=== PATIENT | male | born 1945 | race Hispanic/Latino ===

== ENCOUNTER 2017-07-15 06:18 | Day surgery (SDC) | payer MEDICARE ==
[2017-07-11 15:37] VITALS: BMI 31.9
[2017-07-15] MEDS ORDERED: Lidocaine 2% Inj (20ml) ONE ×2 (06:45→07:08)
[2017-07-15] MEDS ORDERED: Iodixanol 320 MG/ML 200 ML BOTTLE IV ONE (06:46)
[2017-07-15] MEDS ORDERED: Iodixanol 320 MG/ML 100 ML BOTTLE IV ONE (06:46)
[2017-07-15] MEDS ORDERED: Iohexol 350mgl/ml 50 ML ONE ×2 (06:46→07:09)
[2017-07-15] MEDS ORDERED: Nitroglycerin 50mg in D5W 0 MG/0 ML BOTTLE IV ONE (06:46)
[2017-07-15] MEDS ORDERED: Phenylephrine 10 mg/ml Inj ONE (06:46)
[2017-07-15 07:06] LABS: BASO # 0.03 K/mm3 (0.0-2.0); BASO % 0.1 % (0.0-3.0); EOS # 0.1 (0.0-0.7); EOS % 0.3 % (1.5-5.0); GRAN # 7.99 (1.4-6.5); HEMATOCRIT 40.1 % (42.0-52.0); LYMPH # 11.4 (1.2-3.4); LYMPH % 54.2 % (22.0-35.0); MEAN CELL VOLUME 87.4 fl (80.0-105.0); MEAN CORPUSCULAR HEMOGLOBIN 30.7 pg (25.0-35.0); MEAN CORPUSCULAR HGB CONC 35.2 g/dl (31.0-37.0); MEAN PLATELET VOLUME 10.7 fl (7.0-11.0); MONO # 1.6 (0.1-0.6); MONO % 7.4 % (1.0-6.0); RED CELL DISTRIBUTION WIDTH 13.7 % (11.5-14.5); WHITE BLOOD COUNT 21.1 10^3/ul (4.5-11.0)
[2017-07-15] MEDS ORDERED: Midazolam 2 MG/2 ML VIAL ONE ×2 (07:10→08:06)
[2017-07-15 07:16] LABS: BLOOD UREA NITROGEN 27 mg/dL (7-21); CALCIUM 9.6 mg/dL (8.4-10.5); CARBON DIOXIDE 25 mmol/L (21-33); CHLORIDE 93 mmol/L (98-107); CHOLESTEROL 110 mg/dL (130-200); GFR AFRICAN-AMERICAN > 60; GLUCOSE,RANDOM 177 mg/dL (70-110); POTASSIUM 4.6 mmol/L (3.6-5.0); SODIUM 130 mmol/L (132-148)
[2017-07-15 07:17] LABS: INR 1.2 (0.93-1.08); PARTIAL THROMBOPLASTIN TIME 26.9 Seconds (25.1-36.5)
[2017-07-15] MEDS ORDERED: Famotidine 20mg/50ml 20 MG/50 ML BAG IVPB ONE (07:22)
[2017-07-15] MEDS ORDERED: DiphenhydrAMINE 50 mg/ml Inj ONE (07:22)
[2017-07-15] MEDS ORDERED: Flumazenil 0.1 mg/ml Inj (5ml) IVP ONE ×2 (08:12→08:13)
[2017-07-15] MEDS ORDERED: Sodium Chloride 0.9% 1,000 ML IV SCH (09:00)
--- NOTE | 2017-07-15 10:15 | CARD ---
APPROVED REPORT EKG Measurement Heart [id number] MD 140P63 [id number] <Conclusion> Normal sinus rhythm Possible Inferior infarct, age undetermined No change
--- NOTE | 2017-07-15 10:26 | CARD ---
APPROVED REPORT EKG Measurement Heart [id number] UT 140P55 [id number] <Conclusion> Normal sinus rhythm Possible Inferior infarct, age undetermined No change
--- NOTE | 2017-07-15 12:17 | CARDCATH ---
PROCEDURE DATE: 07/15/2017 HISTORY: The patient is a 71-year-old male with multiple cardiac risk factors and a history of multivessel CAD who presents for PTCA and stent of the circumflex artery. The left femoral artery was cannulated with a 6-[place] sheath. There were no complications. I performed moderate sedation, which included the presence of an independent trained observer that assisted in monitoring the patient's level of consciousness and physiologic status. After administration of fentanyl and Versed, my intra service time was 15 minutes. The left femoral artery was cannulated with 6-[place] sheath. There were no complications. The findings on catheterization revealed the right coronary artery was a dominant vessel. The stents that were placed placed previously were patent with no residual stenosis. The circumflex artery revealed 90% stenosis in the midportion. The patient was started on intravenous Angiomax under fluoroscopic guide, the guiding catheter was placed in the ostium of the left main artery. An 0.014 ATW wire was used to cross the lesion. A 2.0 balloon was utilized to pre-dilate the lesion at 12 atmospheres of pressure. Repeat coronary artery revealed an improved lesion. A 2.5 x 12 mm drug-eluting stent was placed and deployed in the midportion of the circumflex artery. Repeat coronary arteriography revealed an excellent result with resolution of the critical stenoses and DWIGHT III flow. Manual compression was used to close the femoral artery site. The patient tolerated the procedure well. In summary, the procedure was successful with PTCA and stent of a critically stenosed mid circumflex artery lesion. A drug-eluting stent was utilized. Cardiac catheterization revealed patent stents in the RCA that was placed previously as well as the critical lesion in the circumflex artery, which was manipulated with a ARELIS. Given these findings, the patient will need to remain on aspirin indefinitely and Plavix for at least a year and undergo a strict cardiac risk reduction program. Moses Pressley MD
--- NOTE | 2017-07-15 12:31 | CP.PCM.HP ---
History of Present Illness - History of Present Illness History of Present Illness: Jorge Ortiz PGY1 IM H&P Note for Dr. Holden/Dr. Turner cc: s/p cath Mr. Simons is a 71 year old male with past medical history of ID, CAD s/p multiple stents, DM2, HTN, and CLL who presented s/p left heart cath and stenting of circumflex artery with Dr. Pressley. On 07/08/17, the patient had a PTCA with stent of two lesions in the proximal and mid RCA with PTCA of the PDA lesion; the patient was noted to have triple disease, which is why he returned for today's procedure. The procedure was tolerated well and the patient currently only complains of back discomfort from lying flat on the bed; denies any bleeding from the region. He denies chest pain, shortness of breath, fevers/ chill, n/v/d, cough, abdominal pain/fullness, headache, weakness or any numbness /tingling. 12-pt ROS was reviewed and is otherwise unremarkable. PMH: as above PSH: cataracts, appendectomy FMH: + Heart disease, DM2 SOCHx: Tobacco: Former smoker quit @51, 30 year pack history. ETOH: Positive ALL: Shellfish Meds:Reviewed and within MAR PMD: Dr. Turenr Cardio: Dr. Pressley Present on Admission - Present on Admission Any Indicators Present on Admission: No Review of Systems - Review of Systems All systems: reviewed and no additional remarkable complaints except (as per HPI ) Past Patient History - Past Medical History & Family History Past Medical History?: Yes Pertinent Family History: heart disease - Past Social History Smoking Status: Former Smoker Alcohol: Occasional Drugs: Denies Home Situation {Lives}: With Family - CARDIAC Hx Cardiac Disorders: Yes (CAD s/p stents) Hx Heart Attack: Yes Hx Hypertension: Yes Hx Pacemaker: No - PULMONARY Hx Respiratory Disorders: No - NEUROLOGICAL Hx Neurological Disorder: No Hx Paralysis: No - HEENT Hx Cataracts: Yes - RENAL Hx Chronic Kidney Disease: No - ENDOCRINE/METABOLIC Hx Diabetes Mellitus Type 2: Yes - HEMATOLOGICAL/ONCOLOGICAL Hx Blood Disorders: Yes (CLL) Hx Blood Transfusions: No Hx Leukemia: Yes - INTEGUMENTARY Hx Dermatological Problems: No - MUSCULOSKELETAL/RHEUMATOLOGICAL Hx Musculoskeletal Disorders: No - GASTROINTESTINAL Hx Gastrointestinal Disorders: No - GENITOURINARY/GYNECOLOGICAL Hx Genitourinary Disorders: No - PSYCHIATRIC Hx Psychophysiologic Disorder: No Hx Emotional Abuse: No Hx Physical Abuse: No Hx Substance Use: No - SURGICAL HISTORY Hx Surgeries: Yes Hx Appendectomy: Yes Hx Cataract Extraction: Yes - ANESTHESIA Hx Anesthesia Reactions: No Hx Malignant Hyperthermia: No Meds Allergies/Adverse Reactions: Allergies Allergy/AdvReac Type Severity Reaction Status Date / Time shellfish derived Allergy Severe URTICARIA Verified 07/05/17 08:16 blueberry AdvReac RASH Verified 07/08/17 16:56 Physical Exam - Constitutional Appears: Well, Non-toxic, No Acute Distress - Head Exam Head Exam: ATRAUMATIC, NORMOCEPHALIC - Eye Exam Eye Exam: EOMI, Normal appearance, PERRL - ENT Exam ENT Exam: Mucous Membranes Moist, Normal Exam - Neck Exam Neck exam: Positive for: Normal Inspection - Respiratory Exam Respiratory Exam: NORMAL BREATHING PATTERN. absent: Rales, Wheezes - Cardiovascular Exam Cardiovascular Exam: RRR, +S1, +S2. absent: JVD - GI/Abdominal Exam GI & Abdominal Exam: Normal Bowel Sounds, Soft. absent: Distended, Tenderness - Extremities Exam Extremities exam: Positive for: normal inspection. Negative for: pedal edema Additional comments: pedal and popliteal pulses present no bleeding from L femoral cath insertion site pressure being applied by tape - Back Exam Back exam: NORMAL INSPECTION. absent: tenderness - Neurological Exam Neurological exam: Alert, Oriented x3 - Psychiatric Exam Psychiatric exam: Normal Affect, Normal Mood - Skin Skin Exam: Dry, Normal Color, Warm Results - Vital Signs Recent Vital Signs: Last Vital Signs Temp 98.2 F 07/15/17 06:45 Pulse 86 07/15/17 06:45 Resp 20 07/15/17 06:45 BP 128/68 07/15/17 06:45 Pulse Ox 97 07/15/17 06:45 - Labs Result Diagrams: 07/15/17 06:46 07/15/17 06:46 Labs: Laboratory Results - last 24 hr 07/15/17 07/15/17 07/15/17 06:46 06:46 06:46 WBC 21.1 H D RBC 4.59 Hgb 14.1 Hct 40.1 L MCV 87.4 MCH 30.7 MCHC 35.2 RDW 13.7 Plt Count 267 MPV 10.7 Gran % 38.0 L Lymph % (Auto) 54.2 H [place] % (Auto) 7.4 H Eos % (Auto) 0.3 L Baso % (Auto) 0.1 Gran # 7.99 H Lymph # 11.4 H [place] # 1.6 H Eos # 0.1 Baso # 0.03 PT 13.3 H INR 1.20 H APTT 26.9 Sodium 130 L Potassium 4.6 Chloride 93 L Carbon Dioxide 25 Anion Gap 17 BUN 27 H Creatinine 1.1 Est GFR ( Amer) > 60 Est GFR (Non-Af Amer) > 60 Random Glucose 177 H Calcium 9.6 Triglycerides 99 Cholesterol 110 L LDL Cholesterol Direct 55 HDL Cholesterol 36 Blood Type Antibody Screen BBK History Checked 07/15/17 06:46 WBC RBC Hgb Hct MCV MCH MCHC RDW Plt Count MPV Gran % Lymph % (Auto) [place] % (Auto) Eos % (Auto) Baso % (Auto) Gran # Lymph # [place] # Eos # Baso # PT INR APTT Sodium Potassium Chloride Carbon Dioxide Anion Gap BUN Creatinine Est GFR ( Amer) Est GFR (Non-Af Amer) Random Glucose Calcium Triglycerides Cholesterol LDL Cholesterol Direct HDL Cholesterol Blood Type A POSITIVE Antibody Screen Negative BBK History Checked Patient has bt Assessment & Plan - Assessment and Plan (Free Text) Assessment: 71 year old male with past medical history of ID, CAD s/p multiple stents, DM2 , HTN, and CLL who is s/p LHC with Dr. Pressley. Patient admitted to telemetry floor for observation and medical management. Plan: 1. s/p left heart cath - PTCA and stent of critically stenosed mid circumflex artery w/ ARELIS - Cardio/Dr. Pressley recommend ASA indefinitely and Plavix at least 1 year and strict cardiac risk reduction program - Continue with post cath protocol as per cardiology - HHD - continue IVF 2. Leukocytosis - chronically elevated, likely due to CLL per family - no medical intervention needed at this time 3. HTN - Normotensive at this time - will hold off starting meds at this time till discharge 4. DM2 - ISS low - Accuchecks ACHS - Holding metformin; will resume 2 days post cath 4. GI/DVT ppx - Plavix & SCDs - avoiding PPI due to possible interaction w/ plavix Patient was seen, examined and discussed with attending, Dr. Navin Ortiz PGY1 Pager # [phone] - Date & Time Date: 07/15/17 Time: 13:05
[2017-07-15] MEDS ORDERED: A C T ELECTRONICS XX ONE (13:01)
[2017-07-15 16:52] VITALS: RESP 18
[2017-07-16 01:14] VITALS: TEMP 98.6
[2017-07-16 06:14] LABS: BASO # 0.01 K/mm3 (0.0-2.0); GRAN # 12.08 (1.4-6.5); GRAN % 45.1 % (50.0-68.0); HEMATOCRIT 38.5 % (42.0-52.0); LYMPH % 48.6 % (22.0-35.0); MEAN CELL VOLUME 87.9 fl (80.0-105.0); MEAN CORPUSCULAR HEMOGLOBIN 30.4 pg (25.0-35.0); MEAN CORPUSCULAR HGB CONC 34.5 g/dl (31.0-37.0); MEAN PLATELET VOLUME 10.6 fl (7.0-11.0); MONO # 1.7 (0.1-0.6); MONO % 6.3 % (1.0-6.0); RED CELL DISTRIBUTION WIDTH 13.5 % (11.5-14.5)
[2017-07-16 06:26] VITALS: BP 125/74; O2SAT 98
[2017-07-16 06:33] LABS: WHITE BLOOD COUNT 26.8 10^3/ul (4.5-11.0)
[2017-07-16 06:56] LABS: BLOOD UREA NITROGEN 21 mg/dL (7-21); CALCIUM 9.4 mg/dL (8.4-10.5); CARBON DIOXIDE 25 mmol/L (21-33); CHLORIDE 98 mmol/L (98-107); GFR AFRICAN-AMERICAN > 60; GLUCOSE,RANDOM 177 mg/dL (70-110); POTASSIUM 4.7 mmol/L (3.6-5.0); SODIUM 133 mmol/L (132-148)
[2017-07-16 11:12] VITALS: PULSE 100
--- NOTE | 2017-07-16 12:06 | CARD ---
APPROVED REPORT EKG Measurement Heart [id number] DC 132P60 [id number] <Conclusion> Normal sinus rhythm Inferior infarct, age undetermined No change
--- NOTE | 2017-07-16 13:54 | CP.PCM.DIS ---
Provider - Provider Attending physician: Yaakov Turner MD Primary care physician: Yaakov Turner MD Time Spent in preparation of Discharge (in minutes): 40 Diagnosis - Discharge Diagnosis (1) Status post left heart catheterization Status: Acute Hospital Course - Lab Results Lab Results: Most Recent Lab Values WBC 26.8 10^3/ul (4.5-11.0) H* D 07/16/17 05:55 RBC 4.38 10^6/uL (3.5-6.1) 07/16/17 05:55 Hgb 13.3 g/dL (14.0-18.0) L 07/16/17 05:55 Hct 38.5 % (42.0-52.0) L 07/16/17 05:55 MCV 87.9 fl (80.0-105.0) 07/16/17 05:55 MCH 30.4 pg (25.0-35.0) 07/16/17 05:55 MCHC 34.5 g/dl (31.0-37.0) 07/16/17 05:55 RDW 13.5 % (11.5-14.5) 07/16/17 05:55 Plt Count 263 10^3/uL (120.0-450.0) 07/16/17 05:55 MPV 10.6 fl (7.0-11.0) 07/16/17 05:55 Gran % 45.1 % (50.0-68.0) L 07/16/17 05:55 Lymph % (Auto) 48.6 % (22.0-35.0) H 07/16/17 05:55 [place] % (Auto) 6.3 % (1.0-6.0) H 07/16/17 05:55 Eos % (Auto) 0.0 % (1.5-5.0) L 07/16/17 05:55 Baso % (Auto) 0.0 % (0.0-3.0) 07/16/17 05:55 Gran # 12.08 (1.4-6.5) H 07/16/17 05:55 Lymph # 13.0 (1.2-3.4) H 07/16/17 05:55 [place] # 1.7 (0.1-0.6) H 07/16/17 05:55 Eos # 0.0 (0.0-0.7) 07/16/17 05:55 Baso # 0.01 K/mm3 (0.0-2.0) 07/16/17 05:55 PT 13.3 SECONDS (9.4-12.5) H 07/15/17 06:46 INR 1.20 (0.93-1.08) H 07/15/17 06:46 APTT 26.9 Seconds (25.1-36.5) 07/15/17 06:46 Sodium 133 mmol/L (132-148) 07/16/17 05:55 Potassium 4.7 mmol/L (3.6-5.0) 07/16/17 05:55 Chloride 98 mmol/L (98-107) 07/16/17 05:55 Carbon Dioxide 25 mmol/L (21-33) 07/16/17 05:55 Anion Gap 15 (10-20) 07/16/17 05:55 BUN 21 mg/dL (7-21) 07/16/17 05:55 Creatinine 0.8 mg/dl (0.8-1.5) 07/16/17 05:55 Est GFR ( Amer) > 60 07/16/17 05:55 Est GFR (Non-Af Amer) > 60 07/16/17 05:55 Random Glucose 177 mg/dL (70-110) H 07/16/17 05:55 Calcium 9.4 mg/dL (8.4-10.5) 07/16/17 05:55 Triglycerides 99 mg/dL (35-160) 07/15/17 06:46 Cholesterol 110 mg/dL (130-200) L 07/15/17 06:46 LDL Cholesterol Direct 55 mg/dL (0-129) 07/15/17 06:46 HDL Cholesterol 36 mg/dL (29-60) 07/15/17 06:46 Blood Type A POSITIVE 07/15/17 06:46 Antibody Screen Negative 07/15/17 06:46 BBK History Checked Patient has bt 07/15/17 06:46 - Hospital Course Hospital Course: Mr. Simons is a 71 year old male with past medical history of CA, CAD s/p multiple stents, DM2, HTN, and CLL who presented s/p left heart cath and stenting of circumflex artery with Dr. Pressley. On 07/08/17, the patient had a PTCA with stent of two lesions in the proximal and mid RCA with PTCA of the PDA lesion; the patient was noted to have triple disease. The procedure was tolerated well and the patient offered no complaints and denied any bleeding from the region. He denies chest pain, shortness of breath, fevers/chill, n/v/d , cough, abdominal pain/fullness, headache, weakness or any numbness/tingling. The patient tolerated his diet well. He was instructed by the medical team to not take his Jentadueto medication until 07/20/17, when he can continue the medication. He was educated about the nephrotoxic results of the metformin use s/p cath. He was instructed to stop by Dr. Turner' office on the day of discharge to pickup Trajenta or an alternative medication. Patient was also instructed about exercising, healthier lifestyle, and lifestyle modifications to decrease his cardiac risk. Patient is instructed to continue his home medications and follow up with Dr. Turner and Dr. Pressley. The patient is fully understanding and has no questions. On morning of discharge, the patient is well and offering no complaints. He has all his medications and does not request any refills. - Date & Time of H&P Date of H&P: 07/15/17 Time of H&P: 12:20 Discharge Exam - Head Exam Head Exam: ATRAUMATIC, NORMOCEPHALIC - Eye Exam Eye Exam: EOMI, Normal appearance, PERRL - ENT Exam ENT Exam: Mucous Membranes Moist, Normal Exam - Neck Exam Neck exam: Normal Inspection - Respiratory Exam Respiratory Exam: NORMAL BREATHING PATTERN, UNREMARKABLE. absent: Rales, Rhonchi - Cardiovascular Exam Cardiovascular Exam: RRR, +S1, +S2. absent: JVD - GI/Abdominal Exam GI & Abdominal Exam: Normal Bowel Sounds, Soft. absent: Distended, Guarding, Tenderness - Extremities Exam Extremities exam: normal inspection, pedal pulses present Additional comments: pedal and popliteal pulses present ecchymoses present over R inguinal region (cath from last week) L femoral region with no active bleeding from cath site no LE swelling - Back Exam Back exam: NORMAL INSPECTION. absent: tenderness - Neurological Exam Neurological exam: Alert, Oriented x3 - Psychiatric Exam Psychiatric exam: Normal Affect, Normal Mood - Skin Skin Exam: Normal Color, Warm Discharge Plan - Follow Up Plan Condition: GOOD Disposition: HOME/ ROUTINE Instructions: Left Heart Catheterization (DC), Heart Healthy Diet (DC), Coronary Intravascular Stent Placement (DC) Additional Instructions: 1. DO NOT take your Jentadueto medication for 3 days post discharge. Starting 07/20/17, you can continue the medication. 2. Stop by Dr. Turner office TODAY after discharge to pickup Trajenta or alternative medication. 3. Please continue your home medications as prescribed. 4. Follow up with your PMD, Dr. Turner within 1 week of discharge. 5. Follow up with your referral agent, Dr. Pressley within 1 week of discharge. 6. Return to the emergency room should you have a worsening of your condition or symptoms. Referrals: Yaakov Turner MD [Primary Care Provider] -
--- NOTE | 2017-07-16 18:25 | PN ---
DATE: 07/16/2017 CARDIOLOGY FOLLOWUP SUBJECTIVE: The patient did well post PTCA and stent. PHYSICAL EXAMINATION: VITAL SIGNS: Blood pressure is 125/74, the heart rate is in the 80s, normal sinus rhythm. NECK: Negative JVD. LUNGS: Without rales. HEART: S1 and S2. EXTREMITIES: Without edema. LABORATORY DATA: The white count is up to 26,000, hemoglobin is 13. Chemistries, BUN and creatinine are unremarkable. IMPRESSION: 1. Stable post percutaneous transluminal coronary angioplasty and stent of the circumflex artery. 2. Multivessel coronary artery disease. 3. Chronic lymphocytic leukemia. 4. Elevated white count secondary to steroid administration to prevent contrast allergy. 5. Hypercholesterolemia. 6. Obesity. PLAN: Given these findings, the patient is stable for discharge. Instructions have been given to the patient about cardiac risk reduction program. The patient and family understand. The patient can be discharged today. Moses Pressley MD
== END 2017-07-16 11:56 | disposition home or self-care (01) ==
LOC: CATH 06:18 → 2RSO 08:43 → CATH 07-16 11:56
PROVIDERS: ATTEND Internal Medicine
DX: I25.10 Atherosclerotic heart disease of native coronary artery without angina pectoris (principal); I10 Essential (primary) hypertension; E11.9 Type 2 diabetes mellitus without complications; C91.10 Chronic lymphocytic leukemia of B-cell type not having achieved remission; Z95.5 Presence of coronary angioplasty implant and graft; Z87.891 Personal history of nicotine dependence; Z79.84 Long term (current) use of oral hypoglycemic drugs
CPT/HCPCS: 36415; 80048; 80061; 85025; 85610; 85730; 86850; 86900; 93005; 99152; 99153; C1725; C1769 ×2; C1874; C1887; C2629; C9600; J0583; J1200; J1644; J2250; J2930; J3010; J7030; J7040; Q9967

== ENCOUNTER 2018-09-17 06:18 | Outpatient (CLI) | payer MEDICARE | END 2018-09-17 06:19 | disposition home or self-care (01) | LOC: CARDIO 06:18 ==